=== PATIENT | male | born 1995 | race Caucasian/White ===

== ENCOUNTER 2017-08-20 20:26 | Emergency (ER) | payer OTHER ==
--- NOTE | 2017-08-20 20:43 | EDPHY ---
H & P Time Seen by Provider: 08/20/17 20:39 HPI/ROS: Chief complaint. Fall from horse HPI. 21-year-old male bucked off horse 2 hr ago. Fell to the ground but did not strike fence or rale. He hit his head but did not lose consciousness. He tells me some neck pain and chest pain but no abdominal pain. Injury right wrist and left knee. No wrist history. He is right handed. He has been ambulatory. No shortness of breath. No vomiting or diarrhea. ROS Constitutional. no fever/chills, no weakness Eyes. no problems with vision ENT. no sore throat, no nasal drainage Cardiovascular. no chest pain Respiratory. no shortness of breath, no cough Abdominal. no abdominal pain, no nausea/vomiting, no diarrhea . no problems urinating MS. Neck pain, chest pain, right wrist, left knee pain, mid back pain Skin. no rash Lymph. no swollen glands Neuro. no headache, no dizziness, no difficulty walking or with speech Past Medical/Surgical History: Hypothyroid Social History: Single, daily smoker, no alcohol Smoking Status: Current some day smoker Physical Exam: General Appearance: Alert well-developed male moderate distress vital signs are stable Eyes: Pupils equal and round no pallor or injection. ENT, head without any evidence of bumps. No hemotympanum or Kauffman sign. No oral pharyngeal or dental trauma. No malocclusion Respiratory: There are no retractions, lungs are clear to auscultation. Cardiovascular: Regular rate and rhythm. Gastrointestinal: Abdomen is soft and nontender, no masses, bowel sounds normal. Neurological: Awake and alert, sensory and motor exams grossly normal. Skin: Warm and dry, no rashes. Musculoskeletal: Neck is nontender to palpation over the C-spine. He has some lateral neck tenderness. C-spine is not tender to palpation no he tells me has pain in the upper thoracic spine with movement. No LS spine tenderness. No surface trauma. Pain to palpation over sternum Extremities right wrist pain without obvious swelling or deformity. Left knee pain without swelling or deformity Psychiatric: Patient is oriented X 3, there is no agitation. Constitutional: Initial Vital Signs Temperature (C) 36.7 C 08/20/17 20:29 Heart Rate 69 08/20/17 20:29 Respiratory Rate 18 08/20/17 20:29 Blood Pressure 148/111 H 08/20/17 20:29 O2 Sat (%) 96 08/20/17 20:29 O2 Delivery Mode Room Air Allergies/Adverse Reactions: bees Allergy (Uncoded 08/20/17 20:29) Home Medications: Medication Instructions Recorded Synthroid 08/20/17 Medical Decision Making - Diagnostics Imaging Results: Chest x-ray reviewed by me shows no fracture or pneumothorax Wrist x-ray reviewed by me shows no fracture dislocation Knee x-ray reviewed by me shows no fracture dislocation Procedures: Ibuprofen ED Course/Re-evaluation: Re-evaluation 10:30 p.m.. Patient and family and I discussed imaging study results. We we discussed treatment plan including criteria for return importance of follow-up and further evaluation. They expressed understanding and agreement. 1 of patient's companions says that initially when he fell off the horse and hit his head that he did have some repetitive questioning although he has not exhibited any of this behavior since he has been here. He has been social interactive conversational neurologically intact. Differential Diagnosis: I have considered concussion, closed-head injury, spine injury, chest injury, extremity fracture and dislocations - Data Points Medications Given: Discontinued Medications Ibuprofen (Motrin) 800 mg PO EDNOW ONE Stop: 08/20/17 21:12 Last Admin: 08/20/17 21:15 Dose: 800 mg Departure - Departure Disposition: Home, Routine, Self-Care Clinical Impression: Concussion Qualifiers: Encounter type: initial encounter Loss of consciousness presence/duration: without LOC Qualified Code(s): S06.0X0A - Concussion without loss of consciousness, initial encounter Condition: Good Instructions: Concussion (ED) Additional Instructions: Easy activity next 1-2 days. Ice to sore areas 1st 24-48 hours. Ibuprofen 800 mg every 6 hr for discomfort. Return for worsening headache, confusion, lethargy, vomiting. No activity that may result in head injury for the next week. Recheck in 2 days if not continuing to improve Referrals: NONE *PRIMARY CARE P,. [Primary Care Provider] - As per Instructions
[2017-08-20] MEDS ORDERED: IBUPROFEN 800 MG TAB PO ONE (21:11)
[2017-08-20 22:43] VITALS: BP 140/114
== END 2017-08-20 22:43 | disposition home or self-care (01) ==
DX: S06.0X0A Concussion without loss of consciousness, initial encounter (principal); F17.200 Nicotine dependence, unspecified, uncomplicated; V80.010A Animal-rider injured by fall from or being thrown from horse in noncollision accident, initial encounter; Y99.8 Other external cause status; Y93.52 Activity, horseback riding